=== PATIENT | female | born 1965 | race Caucasian/White ===

== ENCOUNTER 2016-12-07 09:13 | Inpatient (IN) | payer OTHER ==
[~2016-12-07] VITALS: Ht 182.9 cm; Wt 98.0 kg
[~2016-12-07 09:13] MED LIST: APIX2.5T PO; CLON1 PO; EFFE150C PO; FERR324T4 PO; NORC7.5T PO; STOO100C PO; Z.0.COMMODE-3:1; Z.0.CPM; Z.0.WALKERFRONT
[2016-12-08] MEDS ORDERED: METOPROLOL TARTRATE 25 MG TAB PO PRN (10:00)
[2016-12-08] MEDS ORDERED: LACTATED RINGER'S 1000 ML IV SCH (10:00)
[2016-12-08] MEDS ORDERED: INSULIN HUMAN REGULAR 1,000 UNITS/10 ML VIAL SQ PRN (10:00)
[2016-12-08] MEDS ORDERED: SODIUM CHLORID 0.9% 500 ML IV SCH (10:00)
[2016-12-08] MEDS ORDERED: POVIDONE IODINE 7.5% SCRUB 118 ML BOTTLE TOP SCH (10:15)
[2016-12-08] MEDS ORDERED: ceFAZolin 2 GM PREMIX 50 ML IV SCH (10:15)
[2016-12-08] MEDS ORDERED: VANCOMYCIN 1000 MG/NS 250 ML (for <70 kg) IV SCH ×2 (10:15)
[2016-12-08] MEDS ORDERED: CHLORHEXIDINE GLUCONATE 4% SOLN 120 ML BTL TOP SCH (10:15)
[2016-12-08] MEDS ORDERED: DEXAMETHASONE SOD PHOS 20 MG/5 ML VIAL IV SCH (10:30)
[2016-12-08] MEDS ORDERED: FERR325T PO (10:33)
[2016-12-08] MEDS ORDERED: HYDR-2376 PO (10:33)
[2016-12-08] MEDS ORDERED: EFFE150C PO (10:33)
[2016-12-08] MEDS ORDERED: DOCU100C PO (10:34)
[2016-12-08] MEDS ORDERED: CLON0.5T PO (10:35)
[2016-12-08 10:41] VITALS: BP 122/77; PULSE 80; RESP 16; TEMP 98.4; O2SAT 98
[2016-12-08] MEDS ORDERED: SODIUM CHLORIDE 0.9% IV SCH (11:00)
[2016-12-08] MEDS ORDERED: EXPAREL PERI-ARTICULAR INJECTION (TOTAL VOL. 60 ML) P-ARTICULR SCH ×2 (11:00)
[2016-12-08] MEDS ORDERED: TRANEXAMIC PERI-ARTICULAR 3,000 MG/NS 100 ML P-ARTICULR SCH ×2 (11:00)
[2016-12-08] MEDS ORDERED: TRANEXAMIC ACID IV SCH (11:00)
[2016-12-08] MEDS ORDERED: BUPIVACAINE LIPOSOME PF 1.3% 20 ML VIAL ONE (11:53)
[2016-12-08] MEDS ORDERED: PROPOFOL 200 MG/20 ML AMP IV ONE (12:00)
[2016-12-08] MEDS ORDERED: ONDANSETRON HCL 4 MG/2 ML VIAL IV PUSH ONE (12:00)
[2016-12-08] MEDS ORDERED: APREPITANT 40 MG CAP ONE (12:00)
[2016-12-08] MEDS ORDERED: NEOSTIGMINE 3 MG/3 ML SYR IV ONE (12:00)
[2016-12-08] MEDS ORDERED: ePHEDrine/NS 25 MG/5 ML SYR IV ONE (12:00)
[2016-12-08] MEDS ORDERED: MIDAZOLAM HCL 5 MG/5 ML VIAL ONE (12:00)
[2016-12-08] MEDS ORDERED: PHENYLEPH/NS 1000 MCG/10 ML SYR IV ONE (12:00)
[2016-12-08] MEDS ORDERED: FAMOTIDINE 20 MG/2 ML VIAL ONE (12:00)
[2016-12-08] MEDS ORDERED: ROPIVACAINE PERIART SCH ×4 (12:00)
[2016-12-08] MEDS ORDERED: LACTATED RINGER'S 1000 ML INJ 2,000 ML IV ONE (12:00)
[2016-12-08] MEDS ORDERED: EPINEPHRINE PERIART SCH ×4 (12:00)
[2016-12-08] MEDS ORDERED: [UNRECOGNIZED DRUG - OTHER] PERIART SCH ×4 (12:00)
[2016-12-08] MEDS ORDERED: GENTAMICIN SULFATE 80 MG/2 ML VIAL ONE (12:27)
[2016-12-08] MEDS ORDERED: ENOX40P SQ (13:41)
[2016-12-08] MEDS ORDERED: HYDR-3288 PO (13:41)
[2016-12-08] MEDS ORDERED: ASPI81CH37 CHEW (13:42)
[2016-12-08] MEDS ORDERED: ONDANSETRON HCL 4 MG/2 ML VIAL IVP PRN (13:45)
[2016-12-08] MEDS ORDERED: SODIUM CHLORIDE 0.9% FLUSH 5 ML FLUSH IVF PRN (13:45)
[2016-12-08] MEDS ORDERED: ALUMINUM/MAGNESIUM/SIMETH 30 ML CUP PO PRN (13:45)
[2016-12-08] MEDS ORDERED: diphenhydrAMINE HCL 50 MG/ML VIAL IV PRN (13:45)
[2016-12-08] MEDS ORDERED: ACETAMINOPHEN/HYDROcodone 325 MG/7.5 MG TAB PO PRN (13:45)
[2016-12-08] MEDS ORDERED: MAGNESIUM HYDROXIDE SUSP 30 ML CUP PO PRN (13:45)
[2016-12-08] MEDS ORDERED: NALOXONE HCL 0.4 MG/ML AMP IV PRN (13:45)
[2016-12-08] MEDS ORDERED: BISACODYL 10 MG SUPP PR PRN (13:45)
[2016-12-08] MEDS ORDERED: Post-op Orders (for Pharmacy) MISC XX ONE (13:45)
[2016-12-08] MEDS ORDERED: HYDROmorphone HCL PF 2 MG/ML VIAL ONE (13:55)
[2016-12-08] MEDS ORDERED: fentaNYL CITRATE 250 MCG/5 ML AMP ONE (13:55)
[2016-12-08] MEDS ORDERED: TRANEXAMIC ACID INJ 1,000 MG/10 ML AMP IV ONE (13:55)
[2016-12-08] MEDS ORDERED: VANCOMYCIN HCL 1000 MG VIAL ONE ×2 (13:57→16:00)
[2016-12-08] MEDS ORDERED: *MEPERIDINE 25 MG INJ VIAL PERIprocedural Use ONLY ONE (17:24)
[2016-12-08] MEDS ORDERED: *morphine SULFATE 8 MG/ML PERIprocedure ONLY ONE ×2 (17:46→18:21)
[2016-12-08] MEDS: SODIUM CHLOR 0.9% 1000 ML INJ 1,000 ML IV SCH (18:00)
--- NOTE | 2016-12-08 18:33 | RADRPT ---
EXAM DATE/TIME: 12/08/2016 17:50 [place] COMPARISON: KNEE RIGHT LTD (1 OR 2 VWS), February 09, 2016, 9:28. INDICATIONS : Post total right knee. MEDICAL HISTORY : None. SURGICAL HISTORY : Total right knee ENCOUNTER: Initial ACUITY: 1 day PAIN SCORE: 10/10 LOCATION: Left knee FINDINGS: Total knee arthroplasty is in place. The femoral, tibial, and patellar components appear intact. Th ere are no signs of loosening or fracture. CONCLUSION: Intact total knee arthroplasty for technique. Lior Trinidad MD on December 08, 2016 at 18:31 Board Certified Radiologist. This report was verified electronically.
[2016-12-08 20:10] VITALS: BP 93/53; PULSE 96; RESP 17; TEMP 95.9; O2SAT 96
[2016-12-08] MEDS: SODIUM CHLORIDE 0.9% FLUSH 5 ML FLUSH IVF SCH (20:43)
[2016-12-08] MEDS: clonazePAM 0.5 MG TAB PO SCH (20:43)
[2016-12-08] MEDS: ACETAMINOPHEN/HYDROcodone 325 MG/7.5 MG TAB PO PRN (20:48)
[2016-12-09] VITALS (7 sets, daily range): BP systolic 54–135; BP diastolic 57–79; PULSE 85–108; RESP 17–18; TEMP 95.9–100.1; O2SAT 94–99
[2016-12-09] MEDS: VANCOMYCIN INJ 1,000 MG in SODIUM CHLOR 0.9% 250 ML INJ 250 ML IV SCH ×2 (00:26→15:10)
[2016-12-09] MEDS: ACETAMINOPHEN/HYDROcodone 325 MG/7.5 MG TAB PO PRN ×6 (00:27→21:23)
[2016-12-09] MEDS: SODIUM CHLOR 0.9% 1000 ML INJ 1,000 ML IV SCH ×3 (02:00→21:33)
[2016-12-09] MEDS: MORPHINE SULFATE 4 MG/ML INJ IV PUSH PRN ×4 (03:01→23:42)
[2016-12-09 06:04] LABS: HEMATOCRIT 28.9 % (35.0-46.0); MEAN CELL VOLUME 82.5 FL (80.0-100.0); MEAN CORPUSCULAR HEMOGLOBIN 26.9 PG (27.0-34.0); MEAN CORPUSCULAR HGB CONC 32.6 % (32.0-36.0); PLATELET COUNT 187 TH/MM3 (150-450); RED CELL DISTRIBUTION WIDTH 13.9 % (11.6-17.2); REVIEW FLAG FINAL; WHITE BLOOD COUNT 10.3 TH/MM3 (4.0-11.0)
[2016-12-09 06:31] LABS: BICARBONATE 29.4 MEQ/L (21.0-32.0); POTASSIUM 4.2 MEQ/L (3.5-5.1)
--- NOTE | 2016-12-09 08:08 | PD.ORT.PN ---
Subjective Post Op Day #: 1 Subjective Remarks pain under control. Objective Vitals Vital Signs Date Time Temp Pulse Resp B/P Pulse Ox O2 Delivery O2 Flow Rate FiO2 12/09/16 04:15 95.9 85 17 97/58 96 12/09/16 00:19 96.6 92 17 105/60 94 12/08/16 20:10 95.9 96 17 93/53 96 12/08/16 19:55 100 16 95 Nasal Cannula 2 12/08/16 19:45 97.6 98 16 107/69 95 Nasal Cannula 2 12/08/16 19:00 96 16 105/62 94 Nasal Cannula 2 12/08/16 18:45 90 15 109/65 97 Nasal Cannula 3 12/08/16 18:30 93 15 111/67 96 Nasal Cannula 3 12/08/16 18:26 15 12/08/16 18:18 15 12/08/16 18:15 95 15 114/69 97 Nasal Cannula 4 12/08/16 18:00 98 15 116/70 96 Nasal Cannula 4 12/08/16 17:51 15 12/08/16 17:45 105 15 118/72 94 Nasal Cannula 4 12/08/16 17:30 110 15 125/72 96 Simple Mask 7 12/08/16 17:15 97.5 126 16 139/69 93 Simple Mask 7 12/08/16 10:41 98.4 80 16 122/77 98 I/O 12/08/16 12/08/16 12/08/16 12/09/16 12/09/16 12/09/16 07:00 15:00 23:00 07:00 15:00 23:00 Intake Total 2390 ml 240 ml Output Total 1150 ml 2100 ml Balance 1240 ml -1860 ml Intake Oral 240 ml 240 ml IV Total 150 ml Other 2000 ml Output Urine Total 950 ml 2100 ml Estimated Blood Loss 200 ml # Bowel Movements 0 Result Diagram: 12/09/16 0541 12/09/16 0541 Imaging Last 24 hours Impressions Knee X-Ray 12/08/16 1338 Signed Impressions: Service Date/Time: Thursday, December 08, 2016 17:50 - CONCLUSION: Intact total knee arthroplasty for technique. K. 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 mccauley 2 weeks Cornell Cannon Dec 09, 2016 08:08
--- NOTE | 2016-12-09 08:09 | HHI.DCPOC ---
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 Avoid second hand smoke Call the 24-hour hour crisis hotline for domestic abuse at Cornell Cannon Dec 09, 2016 08:09
[2016-12-09] MEDS ORDERED: COMMODE 3-IN-11 MIS (08:11)
[2016-12-09] MEDS ORDERED: WALKER WHEELS/F1 MIS (08:11)
[2016-12-09] MEDS ORDERED: CPMMACHINE (08:11)
[2016-12-09] MEDS: VENLAFAXINE HCL XR 75 MG CAP PO SCH (08:53)
[2016-12-09] MEDS: DOCUSATE SODIUM 100 MG CAP PO SCH (08:53)
[2016-12-09] MEDS: SODIUM CHLORIDE 0.9% FLUSH 5 ML FLUSH IVF SCH ×2 (08:56→20:07)
[2016-12-09] MEDS ORDERED: BENZOCAINE-MENTHOL (SUGAR FREE) 15 MG-3.6 MG LOZENGE BUCCAL PRN ×2 (11:15→20:00)
[2016-12-09] MEDS: ENOXAPARIN SODIUM 40 MG/0.4 ML SYRINGE SQ SCH (17:04)
[2016-12-09] MEDS: MULTIVITAMINS/MINERALS THERAPEUTIC TAB PO SCH (20:07)
[2016-12-09] MEDS ORDERED: VALT500T PO (21:18)
[2016-12-09] MEDS: clonazePAM 0.5 MG TAB PO SCH (21:24)
[2016-12-09] MEDS ORDERED: ACYCLOVIR 5% CREAM 5 GM TUBE TOPICAL ONE (22:30)
--- NOTE | 2016-12-09 23:55 | PD.CONS ---
[facility] No Primary Care Physician Diagnoses: History of Present Illness patient seen earlier today. Says she is overall feeling well. She does report sore throat, some perceived ear pain, however says this is typical of her TMJ pain in the past. She does have a TMJ mouth device for sleeping which she has not been using here. She denies any hearing difficulties. Review of Systems performed and negative except for HPI and past medical history. Past Family Social History Allergies: Coded Allergies: Erythromycin (Verified Allergy, Severe, NAUSEA, 12/08/16) Percocet (Unverified Allergy, Severe, ANAPHYLAXIS, 12/08/16) Percodan (Unverified Allergy, Severe, ANAPHYLAXIS, 12/08/16) Sulfa (Unverified Allergy, Severe, ANAPHYLAXIS, 12/08/16) Tramadol (Unverified Allergy, Severe, DYSPNEA, 12/08/16) (DOES NOT MIX WITH EFFEXOR) Amoxicillin (Unverified Adverse Reaction, Severe, VOMITING, 12/08/16) Past Medical History History of obstructive sleep apnea suspected but no workup yet. Hot flashes on Effexor. Sleep disturbance on clonazepam, colon polyps with family history of colon cancer Past Surgical History History of bilateral tubal ligation, knee replacement, parotid surgery. Reported Medications reviewed in electronic medical record as documented and confirmed with the patient. Family History Mother from cancer. Father from old age. Social History Patient is nonsmoker, nondrinker, and denies any illicit drugs. Physical Exam Vital Signs Vital Signs Date Time Temp Pulse Resp B/P Pulse Ox O2 Delivery O2 Flow Rate FiO2 12/09/16 20:15 100.1 102 17 126/66 95 12/09/16 16:00 97.0 108 18 135/79 98 12/09/16 12:06 96.4 98 18 54/ 97 12/09/16 09:13 95 Nasal Cannula 21 12/09/16 08:00 96.0 89 18 96/57 99 12/09/16 04:15 95.9 85 17 97/58 96 12/09/16 00:19 96.6 92 17 105/60 94 Physical Exam GENERAL: This is a well-nourished, well-developed patient, in no apparent distress. SKIN: No rashes, ecchymoses or lesions. Cool and dry. HEAD: Atraumatic. Normocephalic. No temporal or scalp tenderness. EYES: Pupils equal round and reactive. Extraocular motions intact. No scleral icterus. No injection or drainage. ENT: Nose without bleeding, purulent drainage or septal hematoma. patient does have some superficial ulceration of the posterior palate NECK: Trachea midline. No JVD or lymphadenopathy. Supple, nontender, no meningeal signs. CARDIOVASCULAR: Regular rate and rhythm without murmurs, gallops, or rubs. RESPIRATORY: Clear to auscultation. Breath sounds equal bilaterally. No wheezes , rales, or rhonchi. GASTROINTESTINAL: Abdomen soft, non-tender, nondistended. No hepato-splenomegaly , or palpable masses. No guarding. MUSCULOSKELETAL: Extremities without clubbing, cyanosis, or edema. postoperative knee not examined. Peripheral perfusion intact. NEUROLOGICAL: Awake and alert. Cranial nerves II through XII intact. Motor and sensory grossly within normal limits. Five out of 5 muscle strength in all muscle groups. Normal speech. Laboratory Laboratory Tests Test 12/09/16 05:41 White Blood Count 10.3 Red Blood Count 3.50 Hemoglobin 9.4 Hematocrit 28.9 Mean Corpuscular Volume 82.5 Mean Corpuscular Hemoglobin 26.9 Mean Corpuscular Hemoglobin 32.6 Concent Red Cell Distribution Width 13.9 Platelet Count 187 Mean Platelet Volume 7.8 Sodium Level 142 Potassium Level 4.2 Chloride Level 106 Carbon Dioxide Level 29.4 Anion Gap 7 Blood Urea Nitrogen 11 Creatinine 0.79 Estimat Glomerular Filtration 76 Rate Random Glucose 115 Calcium Level 8.5 Result Diagram: 12/09/16 0541 12/09/16 0541 Assessment and Plan Assessment and Plan //postoperative knee revision performed 12/08. -Postoperative management as per surgical service Pain management as per surgical service Await return of bowel function. Cathartics ordered //Sore throat -started 24 hours after surgery. Patient reports possible allergy to cobalt, nickel. -nickel is a component of surgical Ahn alloy, and could have been present in intubation blade. -Lozenge. //prophylaxis. As per surgical service. Discussed Condition With patient, nurse. Cornell Caba MD Dec 09, 2016 23:55
[2016-12-10 00:20] VITALS: BP 121/69; PULSE 111; RESP 17; TEMP 99.4; O2SAT 95
[2016-12-10] MEDS: ACETAMINOPHEN/HYDROcodone 325 MG/7.5 MG TAB PO PRN ×3 (01:29→19:09)
[2016-12-10 05:35] LABS: MEAN CORPUSCULAR HEMOGLOBIN 27.1 PG (27.0-34.0); MEAN CORPUSCULAR HGB CONC 33.1 % (32.0-36.0); PLATELET COUNT 189 TH/MM3 (150-450); RED BLOOD COUNT 3.41 MIL/MM3 (4.00-5.30); RED CELL DISTRIBUTION WIDTH 14.3 % (11.6-17.2); REVIEW FLAG FINAL; WHITE BLOOD COUNT 7.6 TH/MM3 (4.0-11.0)
[2016-12-10 05:55] LABS: BICARBONATE 30.7 MEQ/L (21.0-32.0); POTASSIUM 3.8 MEQ/L (3.5-5.1)
[2016-12-10 08:16] VITALS: BP 116/67; PULSE 114; RESP 16; TEMP 99; O2SAT 96
[2016-12-10] MEDS: DOCUSATE SODIUM 100 MG CAP PO SCH (08:38)
[2016-12-10] MEDS: MULTIVITAMINS/MINERALS THERAPEUTIC TAB PO SCH ×2 (08:38→21:42)
[2016-12-10] MEDS: VENLAFAXINE HCL XR 75 MG CAP PO SCH (08:40)
[2016-12-10] MEDS: SODIUM CHLOR 0.9% 1000 ML INJ 1,000 ML IV SCH ×2 (08:42→17:46)
[2016-12-10] MEDS: SODIUM CHLORIDE 0.9% FLUSH 5 ML FLUSH IVF SCH ×2 (08:42→21:41)
[2016-12-10 11:00] VITALS: O2SAT 97
[2016-12-10] MEDS: MORPHINE SULFATE 4 MG/ML INJ IV PUSH PRN (11:44)
[2016-12-10 12:16] VITALS: BP 124/70; PULSE 106; RESP 16; TEMP 98.4; O2SAT 95
--- NOTE | 2016-12-10 12:32 | PD.ORT.PN ---
Subjective Post Op Day #: 2 Subjective Remarks pain under control. denies cp and sob. Objective Vitals Vital Signs Date Time Temp Pulse Resp B/P Pulse Ox O2 Delivery O2 Flow Rate FiO2 12/10/16 11:00 97 21 12/10/16 08:16 99.0 114 16 116/67 96 12/10/16 00:20 99.4 111 17 121/69 95 12/09/16 20:15 100.1 102 17 126/66 95 12/09/16 16:00 97.0 108 18 135/79 98 I/O 12/09/16 12/09/16 12/09/16 12/10/16 12/10/16 12/10/16 06:59 14:59 22:59 06:59 14:59 22:59 Intake Total 240 ml 1200 ml 240 ml 120 ml Output Total 2100 ml 2100 ml Balance -1860 ml -900 ml 240 ml 120 ml Intake Oral 240 ml 1200 ml 240 ml 120 ml Output Urine Total 2100 ml 2100 ml # Voids 1 2 # Bowel Movements 0 0 0 0 Result Diagram: 12/10/16 0452 12/10/16 0452 Imaging Last 24 hours Impressions Knee X-Ray 12/08/16 1338 Signed Impressions: Service Date/Time: Thursday, December 08, 2016 17:50 - CONCLUSION: Intact total knee arthroplasty for technique. K. 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 mccauley 2 weeks Cornell Cannon Dec 10, 2016 12:32
--- NOTE | 2016-12-10 14:04 | MP ---
cc: KAMRAN LLAMAS DATE OF SURGERY: 12/08/2016 PREOPERATIVE DIAGNOSIS Right total knee arthroplasty with persistent effusions and metal allergy. POSTOPERATIVE DIAGNOSIS Right total knee arthroplasty with persistent effusions and metal allergy. PROCEDURE Revision right total knee arthroplasty. SURGEON Dr. Kamran Llamas PYTHON DEVELOPER Kamran Cannon PA-C ANESTHESIA General with an adductor canal block. ESTIMATED BLOOD LOSS 100 cc. TOURNIQUET TIME 84 minutes at 250 mmHg COMPLICATIONS None. IMPLANTS USED [employer] Oxinium size 6 posterior stabilized femoral component with a 160 x 12 mm femoral stem and a 4 mm offset android platform developer, size 6 tibia baseplate with a 120 mm x 12 mm stem, 21 mm polyethylene tibial insert. JUSTIFICATION This patient is a 51-year-old female who has undergone previous right total knee arthroplasty. She has had significant symptoms of severe swelling in the right knee. She had extensive work-up to include multiple aspirations. None of the aspirations have shown any evidence of infection with normal white blood cell count and all cultures have been no-growth to date. The fluid analysis showed no evidence of crystals or gout. She has had rheumatology work-up which was negative. At this point the leading differential diagnosis considered was a metal allergy. She has had extensive nonoperative failed conservative treatment. The patient was counseled as to the risks, benefits and alternatives to revision total knee arthroplasty with Oxinium femoral component and removing cobalt chrome and nickel from her knee replacement. She did wish to proceed with surgery. PROCEDURE IN DETAIL Written consent was obtained. The patient was identified by name, taken to the operating room and placed supine on the operating table. General anesthesia was instituted as well as two grams of IV Ancef and one gram of IV vancomycin. A well-padded tourniquet was placed on the right thigh. The right lower extremity was prepped and draped using isopropyl alcohol, Hibiclens solution and ChloraPrep solution. An Esmarch bandage was used to exsanguinate the right lower extremity and the tourniquet inflated to 250 mmHg. A longitudinal incision was made over the anterior aspect of the right knee. A medial parapatellar arthrotomy was performed. A large effusion was noted to come from the knee joint. I performed an extensive synovectomy and the synovium was sent to pathology for analysis of any infection or acute inflammation. A complete synovectomy was performed including the medial and lateral gutters as well as the intercondylar notch. At this point a flexible osteotome was used to free up the femoral component. The femoral component was removed with minimal loss of bone. A flexible osteotome as well as an oscillating saw was used to free up the tibial component. The tibia component was also removed with minimal loss of bone. Attention was turned back to the femur where an intramedullary guide renee was placed and sequential hand broaching up to size 12. The distal femoral guide was placed and the distal femoral cut was performed with minimal bone resection. The epicondylar axis was identified and the anterior, posterior and chamfer cuts were performed with again minimal loss of bone. At this point attention was turned to the tibia where an intramedullary guide renee was placed in the tibia. Sequential reaming up to size 12 was performed with the tibial renee placed for alignment purposes. The tibia guide was set to remove 2 mm off the lowest portion of the medial tibial plateau. I needed to remove bone to remove the cement mantle which was still present after I removed the tibial baseplate. I performed the tibial cut. At this point trial components were evaluated and the final components were then assembled on the back table. The knee was thoroughly irrigated with sterile saline pulse lavage antibiotic-impregnated solution. The [employer] polymethyl methacrylate cement was mixed on the back table and I also mixed the cement with one gram of IV vancomycin as a prophylactic antibiotic to prevent infection. Cement was placed both on the femur and tibia and the components were then press-fit with the femoral and tibial stems and cemented along the distal portions. A 21 mm insert allowed for full extension to 0 degrees and flexion to 140. The varus-valgus balance appeared appropriate and symmetric, no evidence of instability, and the patella was noted to track centrally. The tourniquet was deflated. Bovie cautery was used for hemostasis. The knee was thoroughly irrigated with sterile saline pulse lavage antibiotic-impregnated solution. The arthrotomy incision was closed with #1 Vicryl suture, the subcutaneous layer with 2-0 Vicryl suture, and the skin was closed with Dermabond. Sterile dressing was applied. The patient tolerated the procedure well with no intraoperative complications noted. Kamran Cannon, physician laboratory assistant certified, was present during the entire procedure to include patient positioning and the procedure itself. The medical necessity of a physician laboratory assistant was indicated in this case due to the complexity of the procedure. He assisted with appropriate manipulation of the leg and also retraction of muscle, tendon, bone and neurovascular structures. He assisted with removal of the prosthesis, revision bone cuts and also implantation of the revision arthroplasty. MD ADRIEN Brown/CECY /5:07 PM /1:33 PM
[2016-12-10] MEDS: ENOXAPARIN SODIUM 40 MG/0.4 ML SYRINGE SQ SCH (14:50)
[2016-12-10 16:33] VITALS: BP 122/70; PULSE 99; RESP 16; TEMP 98.3; O2SAT 97
[2016-12-10 20:10] VITALS: BP 156/80; PULSE 113; RESP 17; TEMP 99.1; O2SAT 94
[2016-12-10] MEDS ORDERED: SOD PHOSPHATE/SOD BIPHOSPHATE (ADULT) ENEMA 133ML PR ONE (20:15)
[2016-12-10] MEDS: clonazePAM 0.5 MG TAB PO SCH (21:42)
--- NOTE | 2016-12-10 23:57 | HHI.PR ---
Subjective Remarks patient seen today around 11 AM. Says she feels well. Reports pain is under control. Sore throat is improving. Objective Vital Signs Date Time Temp Pulse Resp B/P Pulse Ox O2 Delivery O2 Flow Rate FiO2 12/10/16 20:10 99.1 113 17 156/80 94 12/10/16 16:33 98.3 99 16 122/70 97 12/10/16 12:16 98.4 106 16 124/70 95 12/10/16 11:00 97 21 12/10/16 08:16 99.0 114 16 116/67 96 12/10/16 00:20 99.4 111 17 121/69 95 I/O 12/09/16 12/09/16 12/09/16 12/10/16 12/10/16 12/10/16 07:00 15:00 23:00 07:00 15:00 23:00 Intake Total 240 ml 1200 ml 240 ml 120 ml 1080 ml 240 ml Output Total 2100 ml 2100 ml Balance -1860 ml -900 ml 240 ml 120 ml 1080 ml 240 ml Intake Oral 240 ml 1200 ml 240 ml 120 ml 1080 ml 240 ml Output Urine Total 2100 ml 2100 ml # Voids 1 2 3 1 # Bowel Movements 0 0 0 0 0 Result Diagram: 12/10/1645112/10/16451 Objective Remarks GENERAL: patient sitting up in bed. Appears comfortable. Alert and oriented 3. SKIN: Warm and dry. HEAD: Normocephalic. EYES: No scleral icterus. No injection or drainage. NECK: Supple, trachea midline. No JVD. CARDIOVASCULAR: Regular rate and rhythm without murmurs, gallops, or rubs. RESPIRATORY: Breath sounds equal bilaterally. No accessory muscle use. GASTROINTESTINAL: Abdomen soft, non-tender, nondistended. MUSCULOSKELETAL: No cyanosis, or edema. postoperative knee not examined. Peripheral profusion intact. BACK: Nontender without obvious deformity. No CVA tenderness. A/P Assessment and Plan //postoperative knee revision performed 12/08. -Postoperative management as per surgical service Pain management as per surgical service Await return of bowel function. Cathartics ordered //Sore throat. Improving. -started 24 hours after surgery. Patient reports allergy to cobalt, nickel. -nickel is a component of surgical Ahn alloy, and could have been present in intubation blade. -continue Lozenge as necessary. //suspected sleep apnea. Has not obtained workup yet. planned follow-up as outpatientwith primary care. //prophylaxis. As per surgical service Discharge Planning as per surgical service. Await bowel movement. Cornell Caba MD Dec 10, 2016 23:57
[2016-12-11] MEDS: SODIUM CHLOR 0.9% 1000 ML INJ 1,000 ML IV SCH ×2 (00:02→14:00)
[2016-12-11 00:05] VITALS: BP 115/73; PULSE 112; RESP 18; TEMP 99.3; O2SAT 95
[2016-12-11 05:00] LABS: MEAN CELL VOLUME 80.3 FL (80.0-100.0); MEAN CORPUSCULAR HEMOGLOBIN 27.3 PG (27.0-34.0); PLATELET COUNT 206 TH/MM3 (150-450); RED BLOOD COUNT 3.37 MIL/MM3 (4.00-5.30); RED CELL DISTRIBUTION WIDTH 13.6 % (11.6-17.2); REVIEW FLAG FINAL; WHITE BLOOD COUNT 7.7 TH/MM3 (4.0-11.0)
[2016-12-11 05:33] LABS: BICARBONATE 27.1 MEQ/L (21.0-32.0); POTASSIUM 3.5 MEQ/L (3.5-5.1)
--- NOTE | 2016-12-11 07:11 | PD.ORT.PN ---
Subjective Subjective Remarks POD 2 s/p revision right TKA doing well. reports pain but tolerable. out of bed with therapy and using CPM machine Objective Vitals Vital Signs Date Time Temp Pulse Resp B/P Pulse Ox O2 Delivery O2 Flow Rate FiO2 12/11/16 00:05 99.3 112 18 115/73 95 12/10/16 20:10 99.1 113 17 156/80 94 12/10/16 16:33 98.3 99 16 122/70 97 12/10/16 12:16 98.4 106 16 124/70 95 12/10/16 11:00 97 21 12/10/16 08:16 99.0 114 16 116/67 96 I/O 12/10/16 12/10/16 12/10/16 12/11/16 12/11/16 12/11/16 07:00 15:00 23:00 07:00 15:00 23:00 Intake Total 120 ml 1080 ml 240 ml 360 ml Balance 120 ml 1080 ml 240 ml 360 ml Intake Oral 120 ml 1080 ml 240 ml 360 ml # Voids 2 3 1 2 # Bowel Movements 0 0 0 Result Diagram: 12/11/16 0401 12/11/16 0401 Imaging Last 24 hours Impressions Knee X-Ray 12/08/16 1338 Signed Impressions: Service Date/Time: Thursday, December 08, 2016 17:50 - CONCLUSION: Intact total knee arthroplasty for smita. 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 mccauley 2 weeks Jay Herring Dec 11, 2016 07:11
[2016-12-11 08:00] VITALS: BP 129/71; PULSE 114; RESP 17; TEMP 98.8; O2SAT 96
[2016-12-11] MEDS: VENLAFAXINE HCL XR 75 MG CAP PO SCH (09:00)
[2016-12-11] MEDS: SODIUM CHLORIDE 0.9% FLUSH 5 ML FLUSH IVF SCH ×2 (09:46→19:33)
[2016-12-11] MEDS: MULTIVITAMINS/MINERALS THERAPEUTIC TAB PO SCH ×2 (09:46→19:33)
[2016-12-11] MEDS: DOCUSATE SODIUM 100 MG CAP PO SCH (09:47)
[2016-12-11 12:00] VITALS: BP 119/72; PULSE 113; RESP 18; TEMP 95.3; O2SAT 98
[2016-12-11] MEDS: ENOXAPARIN SODIUM 40 MG/0.4 ML SYRINGE SQ SCH (14:48)
[2016-12-11] MEDS: ACETAMINOPHEN/HYDROcodone 325 MG/7.5 MG TAB PO PRN (14:50)
[2016-12-11 16:00] VITALS: BP 134/73; PULSE 117; RESP 18; TEMP 96.4; O2SAT 97
[2016-12-11] MEDS ORDERED: DOCUSATE SODIUM 50 MG/SENNA 8.6 MG TAB PO ONE (18:15)
[2016-12-11 20:49] VITALS: BP 134/81; PULSE 103; RESP 18; TEMP 97.7; O2SAT 99
[2016-12-11] MEDS: clonazePAM 0.5 MG TAB PO SCH (22:27)
[2016-12-12 00:01] VITALS: BP 143/77; PULSE 104; RESP 18; TEMP 99.2; O2SAT 100
--- NOTE | 2016-12-12 06:40 | HHI.PR ---
Subjective Remarks Late entry. Date of service 12/11/16. Patient seen the morning of 12/11/16. Patient says she feels well. Denies any chest pain or shortness of breath. Small bowel movement after enema yesterday. She reports that pain is controlled. Objective Vital Signs Date Time Temp Pulse Resp B/P Pulse Ox O2 Delivery O2 Flow Rate FiO2 12/12/16 00:01 99.2 104 18 143/77 100 12/11/16 20:49 97.7 103 18 134/81 99 12/11/16 16:00 96.4 117 18 134/73 97 12/11/16 12:00 95.3 113 18 119/72 98 12/11/16 08:00 98.8 114 17 129/71 96 I/O 12/11/16 12/11/16 12/11/16 12/12/16 12/12/16 12/12/16 07:00 15:00 23:00 07:00 15:00 23:00 Intake Total 360 ml 720 ml Output Total 850 ml Balance 360 ml -130 ml Intake Oral 360 ml 720 ml Output Urine Total 850 ml # Voids 2 4 6 # Bowel Movements 0 0 Result Diagram: 12/11/16 0401 12/11/16 0401 Objective Remarks GENERAL: patient sitting up in bed. Appears comfortable. Alert and oriented 3.exam unchanged from day prior. SKIN: Warm and dry. HEAD: Normocephalic. EYES: No scleral icterus. No injection or drainage. NECK: Supple, trachea midline. No JVD. CARDIOVASCULAR: Regular rate and rhythm without murmurs, gallops, or rubs. RESPIRATORY: Breath sounds equal bilaterally. No accessory muscle use. GASTROINTESTINAL: Abdomen soft, non-tender, nondistended. MUSCULOSKELETAL: No cyanosis, or edema. postoperative knee not examined. Peripheral profusion intact. BACK: Nontender without obvious deformity. No CVA tenderness. A/P Assessment and Plan //postoperative knee revision performed 12/08. -Postoperative management as per surgical service Pain management as per surgical service //Postoperative constipation. improved after enema. Patient reports still with constipation. Cathartics again ordered. //Sore throat. Improved -started 24 hours after surgery. Patient reports allergy to cobalt, nickel. -nickel is a component of surgical Ahn alloy, and could have been present in intubation blade. -continue Lozenge as necessary. //suspected sleep apnea. Has not obtained workup yet. planned follow-up as outpatientwith primary care. //prophylaxis. As per surgical service Discharge Planning as per surgical service. As per case management, Pending authorization from insurance. Cornell Caba MD Dec 12, 2016 06:39
[2016-12-12] MEDS ORDERED: MAGNESIUM HYDROXIDE SUSP 30 ML CUP PO ONE (06:45)
[2016-12-12] MEDS ORDERED: DOCUSATE SODIUM 50 MG/SENNA 8.6 MG TAB PO ONE (06:45)
--- NOTE | 2016-12-12 06:52 | PD.ORT.PN ---
Subjective Subjective Remarks Resting comfortably. Ready for rehabilitation when bed is available Objective Vitals Vital Signs Date Time Temp Pulse Resp B/P Pulse Ox O2 Delivery O2 Flow Rate FiO2 12/12/16 00:01 99.2 104 18 143/77 100 12/11/16 20:49 97.7 103 18 134/81 99 12/11/16 16:00 96.4 117 18 134/73 97 12/11/16 12:00 95.3 113 18 119/72 98 12/11/16 08:00 98.8 114 17 129/71 96 I/O 12/11/16 12/11/16 12/11/16 12/12/16 12/12/16 12/12/16 07:00 15:00 23:00 07:00 15:00 23:00 Intake Total 360 ml 720 ml Output Total 850 ml Balance 360 ml -130 ml Intake Oral 360 ml 720 ml Output Urine Total 850 ml # Voids 2 4 6 # Bowel Movements 0 0 Result Diagram: 12/11/16 0401 12/11/16 0401 Imaging Last 24 hours Impressions Knee X-Ray 12/08/16 1338 Signed Impressions: Service Date/Time: Thursday, December 08, 2016 17:50 - CONCLUSION: Intact total knee arthroplasty for technique. K. 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 mccauley 2 weeks Matt To Jr. Dec 12, 2016 06:52
[2016-12-12 08:00] VITALS: BP 118/67; PULSE 100; RESP 18; TEMP 97.6; O2SAT 95
[2016-12-12] MEDS: MULTIVITAMINS/MINERALS THERAPEUTIC TAB PO SCH ×2 (08:22→20:22)
[2016-12-12] MEDS: VENLAFAXINE HCL XR 75 MG CAP PO SCH (08:23)
[2016-12-12] MEDS: DOCUSATE SODIUM 100 MG CAP PO SCH (08:23)
[2016-12-12] MEDS: SODIUM CHLORIDE 0.9% FLUSH 5 ML FLUSH IVF SCH ×2 (08:24→20:22)
[2016-12-12] MEDS: SODIUM CHLOR 0.9% 1000 ML INJ 1,000 ML IV SCH (10:00)
[2016-12-12 12:00] VITALS: BP 121/74; PULSE 99; RESP 18; TEMP 98.4; O2SAT 100
[2016-12-12] MEDS ORDERED: SOD PHOSPHATE/SOD BIPHOSPHATE (ADULT) ENEMA 133ML PR ONE (13:00)
[2016-12-12] MEDS: ENOXAPARIN SODIUM 40 MG/0.4 ML SYRINGE SQ SCH (14:42)
[2016-12-12 16:00] VITALS: BP 131/85; PULSE 105; RESP 18; TEMP 98.7; O2SAT 98
[2016-12-12 19:36] VITALS: BP 133/82; PULSE 97; RESP 18; TEMP 97.9; O2SAT 97
[2016-12-12] MEDS: clonazePAM 0.5 MG TAB PO SCH (22:27)
--- NOTE | 2016-12-12 23:11 | HHI.PR ---
Subjective Remarks patient seen today around 3 PM. Says she is feeling all right. Reports pain is under control. Denies any nausea or vomiting. Still no significant bowel movement. Requestenema. Reports sore throat almost resolved. Objective Vital Signs Date Time Temp Pulse Resp B/P Pulse Ox O2 Delivery O2 Flow Rate FiO2 12/12/16 19:36 97.9 97 18 133/82 97 12/12/16 16:00 98.7 105 18 131/85 98 12/12/16 12:00 98.4 99 18 121/74 100 12/12/16 08:00 97.6 100 18 118/67 95 12/12/16 00:01 99.2 104 18 143/77 100 I/O 12/11/16 12/11/16 12/11/16 12/12/16 12/12/16 12/12/16 07:00 15:00 23:00 07:00 15:00 23:00 Intake Total 360 ml 720 ml 480 ml Output Total 850 ml Balance 360 ml -130 ml 480 ml Intake Oral 360 ml 720 ml 480 ml Output Urine Total 850 ml # Voids 2 4 6 2 # Bowel Movements 0 0 1 Result Diagram: 12/11/16 0401 12/11/16 0401 Objective Remarks GENERAL: patient sitting up in bed. Appears comfortable. Alert and oriented 3.exam again unchanged. SKIN: Warm and dry. HEAD: Normocephalic. EYES: No scleral icterus. No injection or drainage. NECK: Supple, trachea midline. No JVD. CARDIOVASCULAR: Regular rate and rhythm without murmurs, gallops, or rubs. RESPIRATORY: Breath sounds equal bilaterally. No accessory muscle use. GASTROINTESTINAL: Abdomen soft, non-tender, nondistended. MUSCULOSKELETAL: No cyanosis, or edema. postoperative knee not examined. Peripheral perfusion intact. BACK: Nontender without obvious deformity. No CVA tenderness. A/P Assessment and Plan //postoperative knee revision performed 12/08. -Postoperative management as per surgical service Pain management as per surgical service //Postoperative constipation. i -enema again ordered per patient request 12/12. //Sore throat. Improved -started 24 hours after surgery. Patient reports allergy to cobalt, nickel. -nickel is a component of surgical Ahn alloy, and could have been present in intubation blade. -continue Lozenge as necessary. //suspected sleep apnea. Has not obtained workup yet. planned follow-up as outpatientwith primary care. //prophylaxis. As per surgical service Discharge Planning as per surgical service. As per case management, Pending authorization from insurance. Cornell Caba MD Dec 12, 2016 23:11
[2016-12-13] VITALS: BP 120/77; PULSE 109; RESP 16; TEMP 98.2; O2SAT 96
[2016-12-13] MEDS: SODIUM CHLOR 0.9% 1000 ML INJ 1,000 ML IV SCH ×2 (06:00→07:26)
[2016-12-13 08:25] VITALS: BP 131/82; PULSE 91; RESP 18; TEMP 96.9; O2SAT 97
[2016-12-13] MEDS: SODIUM CHLORIDE 0.9% FLUSH 5 ML FLUSH IVF SCH (09:00)
[2016-12-13] MEDS: VENLAFAXINE HCL XR 75 MG CAP PO SCH (09:00)
[2016-12-13] MEDS: MULTIVITAMINS/MINERALS THERAPEUTIC TAB PO SCH (09:00)
[2016-12-13] MEDS: DOCUSATE SODIUM 100 MG CAP PO SCH (09:00)
--- NOTE | 2016-12-13 11:39 | HHI.PR ---
Subjective Remarks Patient reports also patient resolved. Denies any chest pain or shortness of breath. Denies any nausea or vomiting. Objective Vital Signs Date Time Temp Pulse Resp B/P Pulse Ox O2 Delivery O2 Flow Rate FiO2 12/13/16 08:25 96.9 91 18 131/82 97 12/13/16 00:00 98.2 109 16 120/77 96 12/12/16 19:36 97.9 97 18 133/82 97 12/12/16 16:00 98.7 105 18 131/85 98 12/12/16 12:00 98.4 99 18 121/74 100 I/O 12/12/16 12/12/16 12/12/16 12/13/16 12/13/16 12/13/16 07:00 15:00 23:00 07:00 15:00 23:00 Intake Total 480 ml 240 ml Balance 480 ml 240 ml Intake Oral 480 ml 240 ml # Voids 6 2 1 # Bowel Movements 0 1 0 Result Diagram: 12/11/16 0401 12/11/16 0401 Objective Remarks Patient appears to be comfortable. A/P Assessment and Plan //postoperative knee revision performed 12/08. -Postoperative management as per surgical service Pain management as per surgical service //Postoperative constipation. i -enema again ordered per patient request 12/12. Resolved. We'll sign off. //Sore throat. Improved -started 24 hours after surgery. Patient reports allergy to cobalt, nickel. -nickel is a component of surgical Ahn alloy, and could have been present in intubation blade. -continue Lozenge as necessary. //suspected sleep apnea. Has not obtained workup yet. planned follow-up as outpatientwith primary care. //prophylaxis. As per surgical service Discharge Planning Patient seen briefly today. Constipation resolved. We'll sign off. Cornell Caba MD Dec 13, 2016 11:39
[2016-12-13 11:54] VITALS: BP 114/74; PULSE 105; RESP 16; TEMP 97.9; O2SAT 100
[2016-12-13] MEDS: ENOXAPARIN SODIUM 40 MG/0.4 ML SYRINGE SQ SCH (15:39)
[2016-12-13 17:12] VITALS: BP 133/83; PULSE 99; RESP 16; TEMP 96.2; O2SAT 100
--- NOTE | 2016-12-28 14:16 | MD ---
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 HISTORY OF PRESENT ILLNESS Ms. Jaime Owusu is a 51-year-old female who has a history of a right total knee arthroplasty. Postoperatively she continued to have significant effusions. She did undergo extensive work-up to include multiple aspirations. The aspirations did not show any evidence of infection. She also underwent a rheumatology work-up which was negative. The leading differential diagnosis to be considered was a metal allergy. The patient was counseled on her diagnosis and treatment options. The risks, benefits and indications were all discussed in great detail. The patient did elect to proceed with surgical intervention to include a revision total knee arthroplasty with Oxinium femoral component and to remove the Cobal chrome and nickel from her original total knee arthroplasty. Date of surgery 12/08/2016, revision right total knee arthroplasty. POST-OP After surgery the patient was admitted to [facility] where she received appropriate medical management, pain control, DVT prophylaxis as well as physical therapy. DISCHARGE Once being discharged from the hospital she has been cleared to go to a [facility] facility. She is in stable condition. She may weight bear as tolerated. She is to receive daily dressing changes and has been instructed on appropriate wound care management. She has been provided prescriptions for DVT prophylaxis as well as pain control. She has also been provided a follow-up appointment to see Dr. Kamran Christensen in the office in approximately two weeks from her date of surgery. The patient has asked appropriate questions which have all been answered. The patient has been discharged. Dictated by: Kamran Cannon PA-C MD ADRIEN Brown/CECY /8:48 AM /2:16 PM
== END 2016-12-13 18:20 | DRG 468 ==
LOC: HSDI 12-08 09:18 → N06B 12-08 20:14
PROVIDERS: ADMIT Orthopaedic Surgery Sports Medicine; ATTEND Orthopaedic Surgery Sports Medicine
PROC: 0SRT0J9 Replacement of Right Knee Joint, Femoral Surface with Synthetic Substitute, Cemented, Open Approach (ICD-10-PCS; 2016-12-08)
PROC: 0SPC09Z Removal of Liner from Right Knee Joint, Open Approach (ICD-10-PCS; 2016-12-08)
PROC: 0SUV09Z Supplement Right Knee Joint, Tibial Surface with Liner, Open Approach (ICD-10-PCS; 2016-12-08)
PROC: 0SPT0JZ Removal of Synthetic Substitute from Right Knee Joint, Femoral Surface, Open Approach (ICD-10-PCS; principal; 2016-12-08 13:43)
DX: T84.89XA Other specified complication of internal orthopedic prosthetic devices, implants and grafts, initial encounter (principal); G47.33 Obstructive sleep apnea (adult) (pediatric); M26.629 Arthralgia of temporomandibular joint, unspecified side; N95.1 Menopausal and female climacteric states; J02.9 Acute pharyngitis, unspecified; K59.00 Constipation, unspecified; Y79.2 Prosthetic and other implants, materials and accessory orthopedic devices associated with adverse incidents; Z87.891 Personal history of nicotine dependence; Z88.2 Allergy status to sulfonamides; Z88.1 Allergy status to other antibiotic agents; Z88.5 Allergy status to narcotic agent; Z88.8 Allergy status to other drugs, medicaments and biological substances
CPT/HCPCS: 73560; 80048; 85027; 86850; 86900; 86901; 88305; 88331; 94150; C1776; C9290; J0171; J0735; J1100; J1170; J1580; J1650; J2175; J2250; J2270; J2370; J2405; J2710; J2795; J3010; J3370; J7030; J7050; J7120; J8501